=== PATIENT | female | born 1930 | race African-American/Black ===

== ENCOUNTER 2017-06-01 08:47 | Emergency (ER) | payer OTHER, BC ==
[~2017-06-01] VITALS: Ht 167.6 cm; Wt 53.5 kg
[~2017-06-01 08:47] MED LIST: CENTRUM SILVER1 TA4 PO; CIPROFLOXACIN500 MG PO; COZAAR50 MG PO; GLU500 PO; LOPRESSOR50 MG PO; LOVASTATIN20 MG PO; NATURAL IRON65 MG PO; UNKNOWN EYE DROP; VITAMIN D32000 I2 PO; VITC100 PO
[2017-06-01 08:57] VITALS: Ht 167.6 cm; Wt 53.5 kg
[2017-06-01 11:19] VITALS: BP 154/72
== END 2017-06-01 11:14 | disposition home or self-care (01) ==
LOC: ED 08:47
DX: G45.9 Transient cerebral ischemic attack, unspecified (principal); I10 Essential (primary) hypertension; E78.00 Pure hypercholesterolemia, unspecified; E11.9 Type 2 diabetes mellitus without complications

== ENCOUNTER 2018-01-24 01:43 | Emergency (ER) | payer OTHER, BC ==
[~2018-01-24] VITALS: Ht 157.5 cm; Wt 56.7 kg
[2018-01-24 03:19] VITALS: BP 146/60
== END 2018-01-24 03:35 | disposition home or self-care (01) ==
LOC: ED 01:43
DX: S09.90XA Unspecified injury of head, initial encounter (principal); I10 Essential (primary) hypertension; E11.9 Type 2 diabetes mellitus without complications; E78.00 Pure hypercholesterolemia, unspecified; Z88.0 Allergy status to penicillin; W22.8XXA Striking against or struck by other objects, initial encounter; Y93.89 Activity, other specified; Y92.89 Other specified places as the place of occurrence of the external cause; Y99.8 Other external cause status

== ENCOUNTER 2018-05-29 23:33 | Emergency (ER) | payer OTHER, BC ==
[2018-05-30 03:45] VITALS: BP 148/70
== END 2018-05-30 03:45 | disposition home or self-care (01) ==
LOC: ED 23:33
DX: I83.028 Varicose veins of left lower extremity with ulcer other part of lower leg (principal); I10 Essential (primary) hypertension; E11.9 Type 2 diabetes mellitus without complications; E78.00 Pure hypercholesterolemia, unspecified; Z86.2 Personal history of diseases of the blood and blood-forming organs and certain disorders involving the immune mechanism; Z88.1 Allergy status to other antibiotic agents

== ENCOUNTER 2019-01-24 22:50 | Emergency (ER) | payer OTHER, BC ==
[~2019-01-24] VITALS: Ht 160 cm; Wt 49.9 kg
[2019-01-24 22:56] VITALS: Ht 160 cm; Wt 49.9 kg
[2019-01-25 00:04] LABS: BASOPHIL % 0.4 % (0-2)
[2019-01-25 00:07] LABS: PLATELET COUNT 260 x10^3mcL (130-400)
[2019-01-25 00:16] LABS: RED CELL DISTRIBUTION WIDTH 14.6 % (11.5-14.5)
[2019-01-25 00:26] LABS: CALCIUM 9.8 mg/dL (8.5-10.1); CARBON DIOXIDE 30.9 mmol/L (21-32); CHLORIDE SERUM 104 mmol/L (98-107); CREATININE SERUM 0.8 mg/dL (0.6-1.0); GLUCOSE SERUM 108 mg/dL (74-106); POTASSIUM SERUM 4.4 mmol/L (3.5-5.1); SODIUM SERUM 143 mmol/L (136-145)
[2019-01-25 00:31] LABS: ALKALINE PHOSPHATASE 216 U/L (46-116); ALT/SGPT 20 U/L (14-59); AST/SGOT 17 U/L (15-37); BILIRUBIN TOTAL 0.5 mg/dL (0.20-1.00); TOTAL PROTEIN, SERUM 6.8 g/dL (6.4-8.2)
[2019-01-25 00:33] LABS: ALBUMIN 2.9 g/dL (3.4-5.0)
[2019-01-25 02:16] LABS: UA SPECIFIC GRAVITY 1.015 (1.005-1.035); microscopic required? YES; urine erythrocyte TRACE (NEGATIVE)
[2019-01-25 03:11] VITALS: BP 137/45
== END 2019-01-25 03:11 | disposition home or self-care (01) ==
LOC: ED 22:50
PROVIDERS: Emergency Medicine
DX: N39.0 Urinary tract infection, site not specified (principal); I10 Essential (primary) hypertension; E11.9 Type 2 diabetes mellitus without complications; E78.00 Pure hypercholesterolemia, unspecified; Z88.0 Allergy status to penicillin
CPT/HCPCS: J7030

== ENCOUNTER → 2020-01-27 | Outpatient (CLI) | payer OTHER, BC ==
[~2020-01-27] MED LIST changes: +FORTAMET500 M1 PO; +KEFLEX500 M1 PO; +LIPITOR40 MG PO; +LOPRESSOR50 M1 PO; -LOPRESSOR50 MG PO; +LOSARTAN POTASS1 TAB PO; +PRILOSEC OTC20 M1 PO; +TARGADOX50 MG PO; +TOPROL XL50 MG PO; +VITAMIN D250 MCG PO
[2020-01-27 12:06] LABS: BASOPHIL % 0.4 % (0-2); PLATELET COUNT 200 x10^3mcL (130-400)
[2020-01-27 12:13] LABS: RED CELL DISTRIBUTION WIDTH 14.8 % (11.5-14.5)
[2020-01-27 12:21] LABS: ALBUMIN 3.4 g/dL (3.4-5.0); ALKALINE PHOSPHATASE 82 U/L (46-116); ALT/SGPT 17 U/L (14-59); AST/SGOT 19 U/L (15-37); BILIRUBIN TOTAL 0.7 mg/dL (0.20-1.00); CALCIUM 9.4 mg/dL (8.5-10.1); CARBON DIOXIDE 32.6 mmol/L (21-32); CHLORIDE SERUM 102 mmol/L (98-107); CREATININE SERUM 0.8 mg/dL (0.6-1.0); GLUCOSE SERUM 87 mg/dL (74-106); POTASSIUM SERUM 3.9 mmol/L (3.5-5.1); SODIUM SERUM 139 mmol/L (136-145); TOTAL PROTEIN, SERUM 7.6 g/dL (6.4-8.2); TRIGLYCERIDES 38 mg/dL (<150)
[2020-01-27 12:22] LABS: CHOLESTEROL 217 mg/dL (<200); CHOLESTEROL/HDL RATIO 2.1; HDL CHOLESTEROL 102 mg/dL (40-60)
== END | disposition home or self-care (01) ==
LOC: LB 11:30
DX: E11.9 Type 2 diabetes mellitus without complications (principal)